=== PATIENT | female | born 1990 | race African-American/Black ===

== ENCOUNTER 2022-09-01 11:21 | Emergency (ER) | payer MEDICAID ==
[~2022-09-01] VITALS: Ht 162.6 cm; Wt 67.4 kg
[~2022-09-01 11:21] MED LIST: FAMO-135 MT; IBUP-2028 MT; LACT1CAP78 MT; LIDO1ADH23 TP; MAG355OR21 MT; METH-773 MT; MULT-1146 MT; TOPUD PO
[2022-09-01 11:46] VITALS: BP 101/78
[2022-09-01] MEDS ORDERED: VISCOUS LIDOCAINE 2% 15 ML UDC PO STA (12:41)
[2022-09-01] MEDS ORDERED: ACETAMINOPHEN 325MG TABLET PO STA (12:41)
[2022-09-01] MEDS ORDERED: VISCOUS LIDOCAINE 2% 15 ML UDC PO NR (14:30)
[2022-09-01] MEDS ORDERED: ACET-2708 MT ×2 (14:51)
[2022-09-01] MEDS ORDERED: ACETAMINOPHEN 325MG TABLET PO NR (15:00)
== END 2022-09-01 15:22 | disposition home or self-care (01) ==
LOC: ER 11:21
DX: R51.9 Headache, unspecified (principal); J02.9 Acute pharyngitis, unspecified
CPT/HCPCS: 99283

== ENCOUNTER 2023-01-08 20:29 | Emergency (ER) | payer MEDICAID, OTHER ==
[~2023-01-08] VITALS: Ht 162.6 cm; Wt 64.7 kg
[2023-01-08 20:52] VITALS: BP 128/87; PULSE 57; RESP 16; TEMP 98.5; O2SAT 94
[2023-01-08 21:16] LABS: CLARITY URINE CLOUDY (CLEAR); COLOR URINE DARK YELLOW (YELLOW); GLUCOSE URINE NEGATIVE (NEGATIVE); KETONES URINE NEGATIVE (NEGATIVE); LEUKOCYTE ESTERASE URINE 1+ (NEGATIVE); NITRITE URINE NEGATIVE (NEGATIVE); OCCULT BLOOD URINE 3+ (NEGATIVE); PH URINE 8.5 (4.5-8.0); PROTEIN URINE 1+ (NEGATIVE); SPECIFIC GRAVITY URINE 1.024 (1.005-1.030)
[2023-01-08 21:39] LABS: BACTERIA URINE 2+; RBC URINE 15-25 /hpf (0-2); SQUAMOUS EPITHELIAL CELL URINE 1+ /lpf (RARE/1+)
[2023-01-08 22:14] LABS: BASOPHILS % 0.4 % (0.0-2.0); DIFFERENTIAL COMMENT 0; EOSINOPHILS % 2.3 % (0.0-5.0); HEMATOCRIT. 44.6 % (36.0-48.0); HEMOGLOBIN. 14.9 g/dL (12.0-16.0); LYMPHOCYTES % 32.1 % (20.0-50.0); MEAN CORPUSCULAR HEMOGLOBIN 34.1 pg (28.0-32.0); MEAN CORPUSCULAR HGB CONC 33.4 g/dL (31.0-37.0); MEAN CORPUSCULAR VOLUME 102.1 fL (81.0-99.0); MEAN PLATELET VOLUME 7.5 fl (7.4-10.4); MONOCYTES % 4.6 % (2.0-8.0); NEUTROPHILS % 60.6 % (40.0-76.0); PLATELET 466 x1000/uL (130-400); RED BLOOD CELL COUNT 4.37 mill/uL (4.2-5.4); RED CELL DISTRIBUTION WIDTH 14.3 % (11.6-14.6); WHITE BLOOD COUNT 9.1 x1000/uL (4.5-11.0)
[2023-01-08] MEDS ORDERED: OXYCODONE HCL/ACETAMINOPHEN 5/325MG TABLET PO ONE (22:15)
[2023-01-08 22:21] LABS: CHLORIDE 105 mEq/L (98-107); INDEX HEMOLYSI 1 (1-3); INDEX ICTERIC 1 (1-4); INDEX LIPEMIC 1 (1-3); POTASSIUM 3.8 mEq/L (3.5-5.1); SODIUM 136 mEq/L (136-145)
[2023-01-08 22:21] LABS: HCG SCREEN NEGATIVE
[2023-01-08 22:30] LABS: ALANINE AMINOTRANSFERASE 40 IU/L (13-61); ALBUMIN 3.6 g/dL (3.4-5.0); BILIRUBIN TOTAL 0.5 mg/dL (0.1-1.0); CALCIUM 9.1 mg/dL (8.5-10.1); CARBON DIOXIDE 26 mEq/L (21-32); CREATININE 0.6 mg/dL (0.6-1.3); GLUCOSE 88 mg/dL (70-105); PROTEIN TOTAL 7.4 g/dL (6.0-8.3); UREA NITROGEN BLOOD 12 mg/dL (7-21)
[2023-01-08 22:37] LABS: ASPARTATE AMINOTRANSFERASE 39 IU/L (15-37)
[2023-01-09] MEDS ORDERED: MORPHINE SULFATE 4 MG/ML CPJ (NOT FOR IM USE) IV ONE (00:30)
== END 2023-01-09 04:43 | disposition home or self-care (01) ==
LOC: ER 21:05
DX: R07.89 Other chest pain (principal); R06.02 Shortness of breath; R11.2 Nausea with vomiting, unspecified
CPT/HCPCS: 80053; 81003; 81025; 84703; 85025; 36415; 71101; 74176; 99285; 76830; 76856; 96374; J2270; Z7610 ×3